=== PATIENT | female | born 1985 | race American Indian/Alaskan Native ===

== ENCOUNTER 2018-05-21 20:56 | Emergency (ER) | payer OTHER ==
[2018-05-21 21:41] VITALS: BP 102/67
[2018-05-21] MEDS ORDERED: NACL 0.9% 1000 ML 1,000 ML IV ONE (21:41)
[2018-05-21] MEDS ORDERED: ZOFRAN IV ONE (21:42)
--- NOTE | 2018-05-21 21:44 | Emergency Department Report ---
Blank Doc - Documentation Documentation: 32 y o Female at 12 weeks geastation presents with worsening n/v cant hold food or fliuds down in the past 3 days obgyn pnc from [facility]
[2018-05-21 22:10] LABS: Alanine Aminotransferase 116 units/L (7-56); Albumin 4.2 g/dL (3.9-5); BUN/Creatinine Ratio 13; Blood Urea Nitrogen 9 mg/dL (7-17); Calcium 9.2 mg/dL (8.4-10.2); Hemolysis Index 6
[2018-05-21] MEDS ORDERED: ZOFRAN ONE (23:46)
[2018-05-22] MEDS ORDERED: BENADRYL IV ONE (00:36)
[2018-05-22] MEDS ORDERED: REGLAN IV ONE (00:36)
[2018-05-22] MEDS ORDERED: VITAMIN B-6 PO ONE (00:38)
[2018-05-22 01:36] LABS: Bilirubin,Urine NEG (Negative); Blood,Urine NEG (Negative); Color,Urine Yellow (Yellow); Mucus,Urine 3+ /HPF
--- NOTE | 2018-05-22 02:06 | Emergency Department Report ---
ED HPI - General Chief complaint: Nausea/Vomiting/Diarrhea Stated complaint: VOMITTING 12 WEEKS Time Seen by Provider: 05/21/18 21:25 Source: patient Mode of arrival: Ambulatory Limitations: No Limitations - History of Present Illness Initial comments: 32 y o Female at 12 weeks geastation presents with worsening n/v cant hold food or fliuds down in the past 3 days obgyn pnc from [facility] MD Complaint: other (n/v ) Onset/Timin -: week(s) Severity: moderate Severity scale (0 -10): 5 Quality: other (n/v ) Consistency: constant Improves with: none Worsens with: eating Associated symptoms: nausea/vomiting Vaginal bleeding: none :: Yes Number of weeks : 12 OB History - Current : no complications Last menstrual period: 01/19/18 - Related Data : 1 Para: 0 Ab: 0 Previous Rx's Medication Instructions Recorded Last Taken Type Acetaminophen [Tylenol] 650 mg PO Q6H PRN #30 capsule 05/22/18 Unknown Rx Metoclopramide [Reglan] 10 mg PO Q6H PRN #30 tab 05/22/18 Unknown Rx Pyridoxine HCl (Vitamin B6) 25 mg PO BID PRN #20 tablet 05/22/18 Unknown Rx [Pyridoxine HCl] diphenhydrAMINE [Benadryl CAP] 25 mg PO QHS PRN 50 Days #30 05/22/18 Unknown Rx capsule Allergies Allergy/AdvReac Type Severity Reaction Status Date / Time No Known Allergies Allergy Verified 05/21/18 20:59 ED Review of Systems ROS: Stated complaint: VOMITTING 12 WEEKS Other details as noted in HPI Constitutional: denies: chills, fever Eyes: denies: eye pain, eye discharge, vision change ENT: denies: ear pain, throat pain Respiratory: denies: cough, shortness of breath, wheezing Cardiovascular: denies: chest pain, palpitations Endocrine: no symptoms reported Gastrointestinal: nausea, vomiting. denies: abdominal pain, diarrhea Genitourinary: denies: urgency, dysuria, discharge Musculoskeletal: denies: back pain, joint swelling, arthralgia Skin: denies: rash, lesions Neurological: denies: headache, weakness, paresthesias Psychiatric: denies: anxiety, depression Hematological/Lymphatic: denies: easy bleeding, easy bruising ED Past Medical Hx - Social History Smoking Status: Never Smoker Substance Use Type: None - Medications Home Medications: Home Medications Medication Instructions Recorded Confirmed Last Taken Type Acetaminophen [Tylenol] 650 mg PO Q6H PRN #30 capsule 05/22/18 Unknown Rx Metoclopramide [Reglan] 10 mg PO Q6H PRN #30 tab 05/22/18 Unknown Rx Pyridoxine HCl (Vitamin B6) 25 mg PO BID PRN #20 tablet 05/22/18 Unknown Rx [Pyridoxine HCl] diphenhydrAMINE [Benadryl CAP] 25 mg PO QHS PRN 50 Days #30 05/22/18 Unknown Rx capsule ED Physical Exam - General Limitations: No Limitations General appearance: alert, in no apparent distress - Head Head exam: Present: atraumatic, normocephalic - Eye Eye exam: Present: normal appearance, PERRL, EOMI Pupils: Present: normal accommodation - ENT ENT exam: Present: mucous membranes moist - Neck Neck exam: Present: normal inspection - Respiratory Respiratory exam: Present: normal lung sounds bilaterally. Absent: respiratory distress - Cardiovascular Cardiovascular Exam: Present: regular rate, normal rhythm. Absent: systolic murmur, diastolic murmur, rubs, gallop - GI/Abdominal GI/Abdominal exam: Present: soft, normal bowel sounds. Absent: distended, tenderness, guarding, rebound, rigid, bruit, hernia - Rectal Rectal exam: Present: deferred - Extremities Exam Extremities exam: Present: normal inspection - Back Exam Back exam: Present: normal inspection, full ROM. Absent: tenderness, CVA tenderness (R), CVA tenderness (L) - Neurological Exam Neurological exam: Present: alert, oriented X3, CN II-XII intact, normal gait, reflexes normal - Psychiatric Psychiatric exam: Present: normal affect, normal mood - Skin Skin exam: Present: warm, dry, intact, normal color. Absent: rash ED Course Vital Signs 05/21/18 21:39 Temperature 98.1 F Pulse Rate 97 H Respiratory 18 Rate Blood Pressure 102/67 O2 Sat by Pulse 100 Oximetry ED Medical Decision Making - Lab Data Result diagrams: 05/22/18 02:16 05/21/18 21:35 Labs 05/21/18 05/21/18 05/22/18 21:35 21:35 00:58 WBC RBC Hgb Hct MCV MCH MCHC RDW Plt Count Lymph % (Auto) [place] % (Auto) Eos % (Auto) Baso % (Auto) Lymph # [place] # Eos # Baso # Seg Neutrophils % Seg Neutrophils # Sodium 136 L Potassium 3.8 Chloride 101.0 Carbon Dioxide 21 L Anion Gap 18 BUN 9 Creatinine 0.7 Estimated GFR > 60 BUN/Creatinine Ratio 13 Glucose 93 Calcium 9.2 Total Bilirubin 0.30 AST 54 H ALT 116 H Alkaline Phosphatase 44 Total Protein 7.5 Albumin 4.2 Albumin/Globulin Ratio 1.3 Lipase 14 HCG, Qual Positive Urine Color Yellow Urine Turbidity Clear Urine pH 5.0 Ur Specific [place] 1.035 H Urine Protein 30 mg/dl Urine Glucose (UA) Neg Urine Ketones 80 Urine Blood Neg Urine Nitrite Neg Urine Bilirubin Neg Urine Urobilinogen 2.0 Ur Leukocyte Esterase Neg Urine WBC (Auto) 1.0 Urine RBC (Auto) 3.0 U Epithel Cells (Auto) 2.0 Urine Mucus 3+ 05/22/18 02:16 WBC 6.3 RBC 2.95 L Hgb 9.5 L Hct 27.7 L MCV 94 MCH 32 MCHC 34 RDW 12.7 L Plt Count 265 Lymph % (Auto) 24.7 [place] % (Auto) 10.0 H Eos % (Auto) 1.1 Baso % (Auto) 0.4 Lymph # 1.6 [place] # 0.6 Eos # 0.1 Baso # 0.0 Seg Neutrophils % 63.8 Seg Neutrophils # 4.1 Sodium Potassium Chloride Carbon Dioxide Anion Gap BUN Creatinine Estimated GFR BUN/Creatinine Ratio Glucose Calcium Total Bilirubin AST ALT Alkaline Phosphatase Total Protein Albumin Albumin/Globulin Ratio Lipase HCG, Qual Urine Color Urine Turbidity Urine pH Ur Specific [place] Urine Protein Urine Glucose (UA) Urine Ketones Urine Blood Urine Nitrite Urine Bilirubin Urine Urobilinogen Ur Leukocyte Esterase Urine WBC (Auto) Urine RBC (Auto) U Epithel Cells (Auto) Urine Mucus - Radiology Data Radiology results: report reviewed, image reviewed cc: LAITH DAS NP PROCEDURE: US GALLBLADDER TECHNIQUE: Real-time sonography in multiple planes of the gallbladder fossa and CBD with imaging of the adjacent liver, pancreas, and right kidney was performed with image documentation. CPT 78710 HISTORY: Abdominal pain COMPARISONS: None . FINDINGS: Liver: Normal size and echotexture with no evidence of cystic or solid mass lesion. Gallbladder: Fluid filled. No gallstones, wall thickening, pericholecystic fluid, or sonographic [place]'s sign. Intrahepatic bile ducts: Normal . Extrahepatic bile ducts: Normal. Pancreas: Normal as visualized with suboptimal depiction of the pancreatic tail. Right kidney: Normal echotexture. No focal renal mass, calculus, or hydronephrosis. Other: No free fluid. IMPRESSION: Normal Examination . This document is electronically signed by Yi Gunn MD., May 22 2018 03:26:53 AM ET Transcribed By: CO Dictated By: YI GUNN MD Electronically Authenticated By: YI GUNN MD Signed Date/Time: 05/22/18 0328 DD/ 4 TD/TT: 05/22/18315 - Medical Decision Making Single IUP 12 w 4 days , Fhr: 156 bpm , n/v symptoms are resolve pt is tolerating po intake without n/v , plan dc to home with rx for reglan. benadryl , pyrodoxine pt will follow up with [facility] tomorrow pt verbalized agreement and understanding of discharge plan, pt is a/o x 3 tolerating po intake at this time. Loc: ED Attending Dr: Ordering Physician: LAITH DAS NP Date of Service: 05/22/18 Procedure(s): US OB transvaginal Accession Number(s): [id number] cc: LAITH DAS NP PROCEDURE: US OB TRANSVAGINAL TECHNIQUE: Real-time transabdominal sonography of the uterus, placenta, amniotic fluid, adnexa, and fetus was performed with image documentation. Measurements were obtained to determine age/size. M-mode Doppler was used to document heartbeat. ADDITIONAL GESTATION: None. HISTORY: abd pain COMPARISONS: None . FINDINGS: There is a single live intrauterine gestation at 13 weeks and 1 day. Estimated date of delivery is 11/26/2018. Heart rate is 156 bpm. There is a 15 mm hemorrhagic cyst in the left ovary. IMPRESSION: Single live intrauterine gestation at approximately 13 weeks 1 day . EDC by US 11/26/2018 . This document is electronically signed by Yi Gunn MD., May 22 2018 03:25:57 AM ET Transcribed By: CO Dictated By: YI GUNN MD Electronically Authenticated By: YI GUNN MD Signed Date/Time: 05/22/187 DD/ 2 TD/TT: 05/22/18313 Critical care attestation.: If time is entered above; I have spent that time in minutes in the direct care of this critically ill patient, excluding procedure time. ED Disposition Clinical Impression: Nausea and vomiting during Disposition: DC-01 TO HOME OR SELFCARE Is pt being admited?: No Does the pt Need Aspirin: No Condition: Stable Instructions: Acute Nausea and Vomiting (ED) Prescriptions: diphenhydrAMINE [Benadryl CAP] 25 mg PO QHS PRN 50 Days #30 capsule PRN Reason: Nausea And Vomiting Pyridoxine HCl (Vitamin B6) [Pyridoxine HCl] 25 mg PO BID PRN #20 tablet PRN Reason: ear pain Metoclopramide [Reglan] 10 mg PO Q6H PRN #30 tab PRN Reason: family dog Acetaminophen [Tylenol] 650 mg PO Q6H PRN #30 capsule PRN Reason: pain Referrals: PRIMARY CARE, [Primary Care Provider] - 3-5 Days Forms: Work/School Release Form(ED)
[2018-05-22 02:47] LABS: Basophils % (Auto) 0.4 % (0.0-1.8); Eosinophils # (Auto) 0.1 K/mm3 (0.0-0.4); Eosinophils % (Auto) 1.1 % (0.0-4.3); Hematocrit 27.7 % (30.3-42.9); Hemoglobin 9.5 gm/dl (10.1-14.3); Lymphocytes # (Auto) 1.6 K/mm3 (1.2-5.4); Lymphocytes % (Auto) 24.7 % (13.4-35.0); Mean Corpuscular HGB Conc 34 % (30-34); Mean Corpuscular Volume 94 fl (79-97); Monocytes # (Auto) 0.6 K/mm3 (0.0-0.8); Platelet Count 265 K/mm3 (140-440); Red Blood Count 2.95 M/mm3 (3.65-5.03); Red Cell Distribution Width 12.7 % (13.2-15.2)
--- NOTE | 2018-05-22 03:27 | Ultrasound Report ---
PROCEDURE: US OB <= 14 WEEKS FETUS TECHNIQUE: Real-time transabdominal sonography of the uterus, placenta, amniotic fluid, adnexa, and fetus was performed with image documentation. Measurements were obtained to determine age/size. M-mode Doppler was used to document heartbeat. ADDITIONAL GESTATION: None. HISTORY: abd pain COMPARISONS: None . FINDINGS: There is a single live intrauterine gestation at 13 weeks and 1 day. Estimated date of delivery is . Heart rate is 156 bpm. There is a 15 mm hemorrhagic cyst in the left ovary. IMPRESSION: Single live intrauterine gestation at approximately 13 weeks 1 day . EDC by US 9 . This document is electronically signed by Yogi Huff MD., May 22 2018 03:25:01 AM ET
--- NOTE | 2018-05-22 03:27 | Ultrasound Report ---
PROCEDURE: US OB TRANSVAGINAL TECHNIQUE: Real-time transabdominal sonography of the uterus, placenta, amniotic fluid, adnexa, and fetus was performed with image documentation. Measurements were obtained to determine age/size. M-mode Doppler was used to document heartbeat. ADDITIONAL GESTATION: None. HISTORY: abd pain COMPARISONS: None . FINDINGS: There is a single live intrauterine gestation at 13 weeks and 1 day. Estimated date of delivery is . Heart rate is 156 bpm. There is a 15 mm hemorrhagic cyst in the left ovary. IMPRESSION: Single live intrauterine gestation at approximately 13 weeks 1 day . EDC by US 9 . This document is electronically signed by Yogi Huff MD., May 22 2018 03:25:57 AM ET
--- NOTE | 2018-05-22 03:28 | Ultrasound Report ---
PROCEDURE: US GALLBLADDER TECHNIQUE: Real-time sonography in multiple planes of the gallbladder fossa and CBD with imaging of the adjacent liver, pancreas, and right kidney was performed with image documentation. CPT 26222 HISTORY: Abdominal pain COMPARISONS: None . FINDINGS: Liver: Normal size and echotexture with no evidence of cystic or solid mass lesion. Gallbladder: Fluid filled. No gallstones, wall thickening, pericholecystic fluid, or sonographic [place]'s sign. Intrahepatic bile ducts: Normal . Extrahepatic bile ducts: Normal. Pancreas: Normal as visualized with suboptimal depiction of the pancreatic tail. Right kidney: Normal echotexture. No focal renal mass, calculus, or hydronephrosis. Other: No free fluid. IMPRESSION: Normal Examination . This document is electronically signed by Yogi Huff MD., May 22 2018 03:26:53 AM ET
== END 2018-05-22 05:05 | disposition home or self-care (01) ==
LOC: ED 20:56
DX: O26.891 Other specified pregnancy related conditions, first trimester (principal); O21.8 Other vomiting complicating pregnancy; R11.0 Nausea
CPT/HCPCS: 36415; 76705; 76801; 76817; 80048; 80053; 81001; 83690; 84703; 85025; 96361; 96374; 96375; 99284; J1200; J2405; J2765; J7030